=== PATIENT | male | born 1995 | race African-American/Black ===

== ENCOUNTER 2023-02-01 17:08 | Emergency (ER) | payer SELFPAY ==
[~2023-02-01] VITALS: Ht 177.8 cm; Wt 84.0 kg
[2023-02-01 17:14] VITALS: BP 129/82; PULSE 77; RESP 16; TEMP 98.7; O2SAT 99
[2023-02-01] MEDS ORDERED: ARIP30TA3 PO (17:21)
== END 2023-02-01 17:55 | disposition home or self-care (01) ==
LOC: ER 17:10
DX: Z02.89 Encounter for other administrative examinations (principal); F31.9 Bipolar disorder, unspecified; Z76.0 Encounter for issue of repeat prescription
CPT/HCPCS: 99281

== ENCOUNTER 2023-02-19 20:11 | Emergency (ER) | payer MEDICAID ==
[~2023-02-19] VITALS: Ht 180.3 cm; Wt 83.0 kg
[2023-02-19] MEDS ORDERED: LORazepam 1 MG tablet PO ONE (21:15)
[2023-02-19 22:12] LABS: BASOPHILS # (AUTO) 0.1 X10'3 (0-0.2); BASOPHILS % (AUTO) 0.7 % (0-1); EOSINOPHILS % (AUTO) 0.7 % (0-6); HEMATOCRIT 42.9 % (42.0-52.0); HEMOGLOBIN 14.5 g/dl (14.0-17.9); LYMPHOCYTES % (AUTO) 26.2 % (21-51); MEAN CORPUSCULAR HEMOGLOBIN 27.7 PG (27.0-31.0); MEAN CORPUSCULAR HGB CONC 33.7 g/dL (33.0-36.5); MEAN CORPUSCULAR VOLUME 82.2 FL (78-98); MEAN PLATELET VOLUME 8.1 FL (7.4-10.4); MONOCYTES # (AUTO) 0.6 X10'3 (0-0.9); NEUTROPHILS # (AUTO) 4.9 X10'3 (1.8-7.7); NEUTROPHILS % (AUTO) 64.4 % (42-75); PLATELET COUNT 257 X10'3 (140-440); RED BLOOD COUNT 5.22 X10'6 (4.70-6.10); RED CELL DISTRIBUTION WIDTH 14.3 % (11.5-14.5); WHITE BLOOD COUNT 7.5 X10'3 (4.5-11.0)
[2023-02-19 22:27] LABS: ALANINE AMINOTRANSFERASE 47 U/L (12-78); ALBUMIN 4.8 G/DL (3.4-5.0); ALBUMIN/GLOBULIN RATIO 1.3 (1.1-1.5); ALKALINE PHOSPHATASE 88 IU/L (46-116); ANION GAP 10 (8-16); ASPARTATE AMINO TRANSFERASE 39 U/L (10-37); BILIRUBIN,TOTAL 1.3 MG/DL (0.1-1.0); BLOOD UREA NITROGEN 11 MG/DL (7-18); BUN/CREATININE RATIO 11.8 (10.0-20.0); CALCIUM 9.3 MG/DL (8.5-10.1); CHLORIDE 99 MMOL/L (99-107); CREATININE 0.93 MG/DL (0.60-1.10); GLUCOSE 98 MG/DL (70-104); POTASSIUM 3.8 MMOL/L (3.5-5.1); SODIUM 136 MMOL/L (135-145); TOTAL CARBON DIOXIDE 27.2 MMOL/L (24-32); TOTAL PROTEIN 8.4 G/DL (6.4-8.2); eCRCL 127 ML/MIN; eGFR > 90 ML/MIN
[2023-02-19 22:39] LABS: ETHANOL < 10 MG/DL (<10); SALICYLATE 1.5 MG/DL (4.0-20.0); THYROID STIMULATING HORMONE 1.54 ulU/ml (0.34-4.50)
[2023-02-19 22:42] LABS: ACETAMINOPHEN < 2.0 UG/ML (10-30)
[2023-02-20] MEDS ORDERED: LORazepam 2 mg/ml vial ONE ×2 (04:57→05:31)
[2023-02-20] MEDS ORDERED: haloperidol lactate 5mg/ml inj ONE (04:58)
[2023-02-20] MEDS ORDERED: acetaminophen 325mg tablet PO ONE (05:15)
[2023-02-20] MEDS ORDERED: LORazepam 1 MG tablet PO PRN (05:40)
[2023-02-20] MEDS ORDERED: ARIPIPRAZOLE 15 MG TABLET PO SCH (08:00)
[2023-02-20] MEDS ORDERED: nicotine 14mg patch - 24hr TD ONE (08:00)
[2023-02-20 09:09] VITALS: BP 142/87; PULSE 87; RESP 16; TEMP 98.1; O2SAT 100
[2023-02-20 09:41] LABS: URINE AMPHETAMINE SCREEN POSITIVE (Neg); URINE BARBITUATE SCREEN NEGATIVE (Neg); URINE BENZODIAZEPINES SCREEN NEGATIVE (Neg); URINE CANNABINOID SCREEN POSITIVE (Neg); URINE COCAINE SCREEN NEGATIVE (Neg); URINE METHADONE SCREEN NEGATIVE (Neg); URINE OPIATE SCREEN NEGATIVE (Neg); URINE PHENCYCLIDINE SCREEN NEGATIVE (Neg)
[2023-02-20] MEDS ORDERED: ziprasidone IM 20mg inj **IM only IM ONE (11:05)
[2023-02-20] MEDS ORDERED: haloperidol lactate 5mg/ml inj IM ONE ×2 (11:25)
[2023-02-20] MEDS ORDERED: diphenhydrAMINE 50 mg/ml inj IM ONE ×2 (11:25)
[2023-02-20] MEDS ORDERED: LORazepam 2 mg/ml vial IM ONE ×2 (11:25)
== END 2023-02-20 11:58 | disposition left against medical advice (07) ==
LOC: ER 20:13
DX: R45.1 Restlessness and agitation (principal); Z20.822 Contact with and (suspected) exposure to COVID-19; F19.10 Other psychoactive substance abuse, uncomplicated
CPT/HCPCS: 36415; 80053; 80305; 80320; 80329; 84443; 85025; 87811; 96372; 99284; J1200; J1630; J2060

== ENCOUNTER → 2023-02-19 | Emergency (ER) | payer MEDICAID ==
[~2023-02-19] VITALS: Ht 180.3 cm; Wt 83.0 kg
[~2023-02-19] MED LIST: ARIP30TA3 PO
[2023-02-19 12:23] VITALS: BP 133/76; PULSE 100; RESP 18; TEMP 98.4; O2SAT 90
[2023-02-19 13:56] LABS: MEAN PLATELET VOLUME 8.2 FL (7.4-10.4); RED CELL DISTRIBUTION WIDTH 14.4 % (11.5-14.5)
[2023-02-19 13:58] LABS: BASOPHILS # (AUTO) 0.1 X10'3 (0-0.2); BASOPHILS % (AUTO) 0.8 % (0-1); EOSINOPHILS % (AUTO) 0.3 % (0-6); HEMATOCRIT 43.1 % (42.0-52.0); HEMOGLOBIN 14.2 g/dl (14.0-17.9); LYMPHOCYTES # (AUTO) 1.6 X10'3 (1.1-4.8); LYMPHOCYTES % (AUTO) 23.1 % (21-51); MEAN CORPUSCULAR HEMOGLOBIN 27.1 PG (27.0-31.0); MEAN CORPUSCULAR VOLUME 82.1 FL (78-98); MONOCYTES # (AUTO) 0.6 X10'3 (0-0.9); MONOCYTES % (AUTO) 8.1 % (2-12); NEUTROPHILS # (AUTO) 4.8 X10'3 (1.8-7.7); NEUTROPHILS % (AUTO) 67.7 % (42-75); PLATELET COUNT 247 X10'3 (140-440); RED BLOOD COUNT 5.25 X10'6 (4.70-6.10); WHITE BLOOD COUNT 7.1 X10'3 (4.5-11.0)
[2023-02-19 14:13] LABS: ALANINE AMINOTRANSFERASE 43 U/L (12-78); ALBUMIN 4.9 G/DL (3.4-5.0); ALBUMIN/GLOBULIN RATIO 1.1 (1.1-1.5); ALKALINE PHOSPHATASE 84 IU/L (46-116); ANION GAP 10 (8-16); ASPARTATE AMINO TRANSFERASE 40 U/L (10-37); BILIRUBIN,TOTAL 1.2 MG/DL (0.1-1.0); BLOOD UREA NITROGEN 14 MG/DL (7-18); BUN/CREATININE RATIO 15.6 (10.0-20.0); CALCIUM 9.7 MG/DL (8.5-10.1); CHLORIDE 101 MMOL/L (99-107); ETHANOL < 10 MG/DL (<10); GLUCOSE 89 MG/DL (70-104); POTASSIUM 3.8 MMOL/L (3.5-5.1); SODIUM 139 MMOL/L (135-145); TOTAL CARBON DIOXIDE 28.5 MMOL/L (24-32); TOTAL PROTEIN 9.3 G/DL (6.4-8.2); eCRCL 131 ML/MIN; eGFR > 90 ML/MIN
== END | disposition left against medical advice (07) ==
LOC: ER 12:13
DX: F41.9 Anxiety disorder, unspecified (principal); Z20.822 Contact with and (suspected) exposure to COVID-19; F30.9 Manic episode, unspecified; F29 Unspecified psychosis not due to a substance or known physiological condition; Z79.899 Other long term (current) drug therapy; Z59.00 Homelessness unspecified
CPT/HCPCS: 36415; 80053; 80320; 85025; 87811; 99284; 99285

== ENCOUNTER 2023-07-20 22:54 | Emergency (ER) | payer MEDICAID ==
[~2023-07-20] VITALS: Ht 177.8 cm; Wt 83.0 kg
[~2023-07-20 22:54] MED LIST changes: -ARIP30TA3 PO; +FERR142T13 PO; +HYDR-3686 PO; +NICO-631 TD; +NICO-907 BC; +OLAN10TA73 PO
[2023-07-20 23:41] LABS: BASOPHILS # (AUTO) 0.1 X10'3 (0-0.2); BASOPHILS % (AUTO) 0.7 % (0-1); EOSINOPHILS # (AUTO) 0.1 X10'3 (0-0.9); EOSINOPHILS % (AUTO) 0.8 % (0-6); HEMATOCRIT 41.6 % (42.0-52.0); HEMOGLOBIN 13.9 g/dl (14.0-17.9); LYMPHOCYTES # (AUTO) 2.4 X10'3 (1.1-4.8); LYMPHOCYTES % (AUTO) 27.8 % (21-51); MEAN CORPUSCULAR HEMOGLOBIN 26.5 PG (27.0-31.0); MEAN CORPUSCULAR HGB CONC 33.5 g/dL (33.0-36.5); MEAN CORPUSCULAR VOLUME 79.1 FL (78-98); MEAN PLATELET VOLUME 7.4 FL (7.4-10.4); MONOCYTES # (AUTO) 0.8 X10'3 (0-0.9); MONOCYTES % (AUTO) 9.9 % (2-12); NEUTROPHILS # (AUTO) 5.2 X10'3 (1.8-7.7); NEUTROPHILS % (AUTO) 60.8 % (42-75); PLATELET COUNT 272 X10'3 (140-440); RED BLOOD COUNT 5.26 X10'6 (4.70-6.10); RED CELL DISTRIBUTION WIDTH 14.8 % (11.5-14.5); WHITE BLOOD COUNT 8.5 X10'3 (4.5-11.0)
[2023-07-21 00:01] LABS: ALBUMIN 4.6 G/DL (3.4-5.0); ANION GAP 12 (8-16); BLOOD UREA NITROGEN 12 MG/DL (7-18); BUN/CREATININE RATIO 12.9 (10.0-20.0); CHLORIDE 100 MMOL/L (99-107); CREATININE 0.93 MG/DL (0.60-1.10); ETHANOL < 10 MG/DL (<10); GLUCOSE 89 MG/DL (70-104); POTASSIUM 3.3 MMOL/L (3.5-5.1); SALICYLATE 0.8 MG/DL (4.0-20.0); SODIUM 136 MMOL/L (135-145); TOTAL CARBON DIOXIDE 23.7 MMOL/L (24-32); eCRCL 123 ML/MIN; eGFR > 90 ML/MIN
[2023-07-21 00:06] LABS: ACETAMINOPHEN < 2.0 UG/ML (10-30)
[2023-07-21] MEDS: LORazepam 1 MG tablet PO ONE (00:51)
[2023-07-21 01:32] LABS: BILIRUBIN,URINE NEGATIVE (Neg); CLARITY,URINE CLEAR (Clear); COLOR,URINE YELLOW (Yellow); GLUCOSE, URINE NEGATIVE (Neg); KETONES,URINE 15 mg/dl (Neg); LEUKOCYTE ESTERASE ,URINE NEGATIVE (Neg); NITRITES, URINE NEGATIVE (Neg); OCCULT BLOOD,URINE NEGATIVE (Neg); PH,URINE 5.5 (4.8-8.0); PROTEIN,URINE NEGATIVE (Neg)
[2023-07-21 01:40] LABS: URINE AMPHETAMINE SCREEN POSITIVE (Neg); URINE BARBITUATE SCREEN NEGATIVE (Neg); URINE BENZODIAZEPINES SCREEN NEGATIVE (Neg); URINE CANNABINOID SCREEN POSITIVE (Neg); URINE COCAINE SCREEN NEGATIVE (Neg); URINE METHADONE SCREEN NEGATIVE (Neg); URINE PHENCYCLIDINE SCREEN NEGATIVE (Neg)
[2023-07-21 01:50] LABS: UA COLLECTION TYPE CLN CATCH MIDSTREAM
[2023-07-21] MEDS ORDERED: HYDR-3686 PO (10:05)
[2023-07-21] MEDS ORDERED: OLAN5TAB5 PO (10:05)
[2023-07-21] MEDS ORDERED: OLANZapine 2.5MG tablet PO ONE ×2 (13:20→13:25)
[2023-07-21] MEDS ORDERED: hydrOXYzine 25 MG tablet PO ONE (13:20)
[2023-07-21] MEDS: olanzapine 10mg tablet PO ONE (13:32)
[2023-07-21] MEDS: hydrOXYzine 25 MG tablet PO ONE (13:32)
[2023-07-21 15:02] VITALS: BP 122/70; PULSE 74; RESP 16; TEMP 98.2; O2SAT 100
[2023-07-21] MEDS ORDERED: hydrOXYzine 25 MG tablet PO SCH ×2 (21:00)
[2023-07-21] MEDS ORDERED: OLANZapine 5mg rapidly disint. tablet PO SCH ×2 (21:00)
== END 2023-07-21 15:22 | disposition home or self-care (01) ==
LOC: ER 22:55
DX: R45.850 Homicidal ideations (principal); Z20.822 Contact with and (suspected) exposure to COVID-19; F23 Brief psychotic disorder; Z79.899 Other long term (current) drug therapy; F12.90 Cannabis use, unspecified, uncomplicated
CPT/HCPCS: 36415; 80048; 80305; 80320; 80329; 81003; 85025; 87811; 99285; Q0177

== ENCOUNTER 2023-07-27 19:18 | Emergency (ER) | payer MEDICAID ==
[~2023-07-27] VITALS: Ht 180.3 cm; Wt 80.0 kg
[~2023-07-27 19:18] MED LIST changes: -FERR142T13 PO; -NICO-631 TD; -NICO-907 BC; -OLAN10TA73 PO; +OLAN5TAB5 PO
[2023-07-27 20:54] LABS: BASOPHILS % (AUTO) 0.9 % (0-1); EOSINOPHILS # (AUTO) 0.2 X10'3 (0-0.9); HEMATOCRIT 39.7 % (42.0-52.0); HEMOGLOBIN 13.1 g/dl (14.0-17.9); LYMPHOCYTES # (AUTO) 1.7 X10'3 (1.1-4.8); LYMPHOCYTES % (AUTO) 32.5 % (21-51); MEAN CORPUSCULAR HEMOGLOBIN 26.5 PG (27.0-31.0); MEAN CORPUSCULAR VOLUME 80.1 FL (78-98); MEAN PLATELET VOLUME 7.2 FL (7.4-10.4); MONOCYTES # (AUTO) 0.5 X10'3 (0-0.9); MONOCYTES % (AUTO) 9.6 % (2-12); NEUTROPHILS # (AUTO) 2.9 X10'3 (1.8-7.7); PLATELET COUNT 267 X10'3 (140-440); RED BLOOD COUNT 4.95 X10'6 (4.70-6.10); RED CELL DISTRIBUTION WIDTH 15.1 % (11.5-14.5); WHITE BLOOD COUNT 5.3 X10'3 (4.5-11.0)
[2023-07-27 21:09] LABS: ANION GAP 7 (8-16); BLOOD UREA NITROGEN 7 MG/DL (7-18); BUN/CREATININE RATIO 8.3 (10.0-20.0); CHLORIDE 101 MMOL/L (99-107); CREATININE 0.84 MG/DL (0.60-1.10); GLUCOSE 102 MG/DL (70-104); POTASSIUM 3.3 MMOL/L (3.5-5.1); SALICYLATE 1.7 MG/DL (4.0-20.0); SODIUM 136 MMOL/L (135-145); TOTAL CARBON DIOXIDE 27.6 MMOL/L (24-32); eCRCL 141 ML/MIN; eGFR > 90 ML/MIN
[2023-07-27 21:10] LABS: ACETAMINOPHEN < 2.0 UG/ML (10-30)
[2023-07-27 21:11] LABS: ETHANOL < 10 MG/DL (<10)
[2023-07-27] MEDS ORDERED: POTASSIUM BICARB 20meq eff tab 20 MEQ TABLET.EFF PO SCH (21:35)
[2023-07-27] MEDS: POTASSIUM BICARB 20meq eff tab 20 MEQ TABLET.EFF PO SCH (21:35)
[2023-07-27] MEDS ORDERED: POTASSIUM BICARB 20meq eff tab 20 MEQ TABLET.EFF PO STA (21:38)
[2023-07-27] MEDS: potassium Cl 20 mEq SR tablet PO STA (22:09)
[2023-07-27 23:44] LABS: BILIRUBIN,URINE NEGATIVE (Neg); CLARITY,URINE CLEAR (Clear); COLOR,URINE YELLOW (Yellow); GLUCOSE, URINE NEGATIVE (Neg); KETONES,URINE NEGATIVE (Neg); LEUKOCYTE ESTERASE ,URINE NEGATIVE (Neg); NITRITES, URINE NEGATIVE (Neg); OCCULT BLOOD,URINE NEGATIVE (Neg); PROTEIN,URINE NEGATIVE (Neg)
[2023-07-27 23:50] LABS: UA COLLECTION TYPE CLN CATCH MIDSTREAM
[2023-07-28 00:01] LABS: URINE AMPHETAMINE SCREEN NEGATIVE (Neg); URINE BARBITUATE SCREEN NEGATIVE (Neg); URINE BENZODIAZEPINES SCREEN NEGATIVE (Neg); URINE CANNABINOID SCREEN POSITIVE (Neg); URINE COCAINE SCREEN NEGATIVE (Neg); URINE METHADONE SCREEN NEGATIVE (Neg); URINE PHENCYCLIDINE SCREEN NEGATIVE (Neg)
[2023-07-28 06:31] VITALS: BP 112/74; PULSE 60; RESP 16; TEMP 96.7; O2SAT 100
== END 2023-07-28 13:26 | disposition home or self-care (01) ==
LOC: ER 19:19
DX: R45.851 Suicidal ideations (principal); Z20.822 Contact with and (suspected) exposure to COVID-19; F12.90 Cannabis use, unspecified, uncomplicated; Z79.899 Other long term (current) drug therapy
CPT/HCPCS: 36415; 80048; 80305; 80320; 80329; 81003; 85025; 87811; 99285

== ENCOUNTER 2024-01-18 16:57 | Inpatient (IN) | payer MEDICAID ==
[~2024-01-18] VITALS: Ht 180.3 cm; Wt 85.2 kg
[2024-01-18 18:07] LABS: BASOPHILS % (AUTO) 0.6 % (0-1); EOSINOPHILS % (AUTO) 0.5 % (0-6); HEMATOCRIT 43.3 % (42.0-52.0); HEMOGLOBIN 14.8 g/dl (14.0-17.9); LYMPHOCYTES # (AUTO) 1.6 X10'3 (1.1-4.8); LYMPHOCYTES % (AUTO) 21.6 % (21-51); MEAN CORPUSCULAR HEMOGLOBIN 27.6 PG (27.0-31.0); MEAN PLATELET VOLUME 7.7 FL (7.4-10.4); MONOCYTES # (AUTO) 0.6 X10'3 (0-0.9); MONOCYTES % (AUTO) 7.4 % (2-12); NEUTROPHILS # (AUTO) 5.2 X10'3 (1.8-7.7); NEUTROPHILS % (AUTO) 69.9 % (42-75); PLATELET COUNT 288 X10'3 (140-440); RED BLOOD COUNT 5.35 X10'6 (4.70-6.10); WHITE BLOOD COUNT 7.4 X10'3 (4.5-11.0)
[2024-01-18] MEDS: LORazepam 1 MG tablet PO ONE (18:11)
[2024-01-18] MEDS: hydrOXYzine 25 MG tablet PO ONE (18:12)
[2024-01-18 18:30] LABS: ALBUMIN 4.6 G/DL (3.4-5.0); ANION GAP 11 (8-16); BLOOD UREA NITROGEN 12 MG/DL (7-18); BUN/CREATININE RATIO 13.5 (10.0-20.0); CALCIUM 9.4 MG/DL (8.5-10.1); CHLORIDE 101 MMOL/L (99-107); CREATININE 0.89 MG/DL (0.60-1.10); ETHANOL < 10 MG/DL (<10); GLUCOSE 105 MG/DL (70-104); POTASSIUM 3.6 MMOL/L (3.5-5.1); SODIUM 137 MMOL/L (135-145); THYROID STIMULATING HORMONE 0.58 ulU/ml (0.34-4.50); eCRCL 124 ML/MIN; eGFR > 90 ML/MIN
[2024-01-19 05:24] LABS: BILIRUBIN,URINE NEGATIVE (Neg); CLARITY,URINE CLEAR (Clear); COLOR,URINE YELLOW (Yellow); GLUCOSE, URINE NEGATIVE (Neg); KETONES,URINE 15 mg/dl (Neg); LEUKOCYTE ESTERASE ,URINE NEGATIVE (Neg); NITRITES, URINE NEGATIVE (Neg); OCCULT BLOOD,URINE NEGATIVE (Neg); PROTEIN,URINE NEGATIVE (Neg)
[2024-01-19 05:28] LABS: UA COLLECTION TYPE CLN CATCH MIDSTREAM
[2024-01-19 05:45] LABS: URINE AMPHETAMINE SCREEN NEGATIVE (Neg); URINE BARBITUATE SCREEN NEGATIVE (Neg); URINE BENZODIAZEPINES SCREEN NEGATIVE (Neg); URINE CANNABINOID SCREEN POSITIVE (Neg); URINE COCAINE SCREEN NEGATIVE (Neg); URINE METHADONE SCREEN NEGATIVE (Neg); URINE OPIATE SCREEN NEGATIVE (Neg); URINE PHENCYCLIDINE SCREEN NEGATIVE (Neg)
[2024-01-19 16:56] VITALS: BP 136/59; PULSE 83; RESP 12; TEMP 98.8; O2SAT 99
[2024-01-19 17:32] VITALS: RESP 12; O2SAT 99
[2024-01-19] MEDS ORDERED: LURA20TA2 PO (17:32)
[2024-01-19] MEDS ORDERED: HYDR50TA65 PO (17:32)
[2024-01-19 19:00] VITALS: RESP 18; O2SAT 99
[2024-01-19 20:00] VITALS: BP 128/80; PULSE 83; RESP 20; TEMP 97.1; O2SAT 99
[2024-01-19] MEDS: hydrOXYzine 25 MG tablet PO SCH (20:50)
[2024-01-19] MEDS: OLANZapine 5mg rapidly disint. tablet PO SCH (20:54)
[2024-01-20 07:00] VITALS: RESP 16; O2SAT 99
[2024-01-20 08:00] VITALS: BP 136/80; PULSE 79; RESP 16; TEMP 98; O2SAT 99
[2024-01-20] MEDS: hydrOXYzine 25 MG tablet PO PRN (08:28)
[2024-01-20] MEDS: OLANZapine 5mg rapidly disint. tablet PO ONE (08:57)
[2024-01-20] MEDS: LORazepam 1 MG tablet PO ONE (08:57)
[2024-01-20 19:00] VITALS: RESP 18; O2SAT 100
[2024-01-20 19:31] VITALS: BP 156/64; PULSE 76; RESP 18; TEMP 97.8; O2SAT 100
[2024-01-20] MEDS: lurasidone 20mg tablet PO SCH (20:26)
[2024-01-20] MEDS: ondansetron 4mg rapidly disintigrating tab PO ONE (22:10)
[2024-01-20] MEDS: ziprasidone IM 20mg inj **IM only IM ONE (22:18)
[2024-01-20] MEDS ORDERED: diphenhydrAMINE 25mg capsule PO ONE (22:30)
[2024-01-20] MEDS ORDERED: LORazepam 1 MG tablet PO ONE (22:30)
[2024-01-20] MEDS ORDERED: haloperidol 5mg tablet PO ONE (22:30)
[2024-01-21 06:32] VITALS: RESP 18; O2SAT 100
[2024-01-21 08:00] VITALS: BP 112/85; PULSE 105; RESP 16; TEMP 97.8; O2SAT 98
[2024-01-21] MEDS ORDERED: loperamide 2mg capsule PO PRN (09:30)
[2024-01-21] MEDS ORDERED: acetaminophen 325mg tablet PO PRN ×2 (09:30)
[2024-01-21] MEDS: magnesium hydroxide 30ml (MOM) UD suspension PO PRN (09:44)
[2024-01-21] MEDS: haloperidol 5mg tablet PO ONE (14:35)
[2024-01-21] MEDS: diphenhydrAMINE 25mg capsule PO ONE (14:35)
[2024-01-21] MEDS: ziprasidone 20mg capsule PO ONE (14:35)
[2024-01-21 18:48] VITALS: RESP 18; O2SAT 100
[2024-01-21 19:00] VITALS: BP 144/78; PULSE 88; RESP 18; TEMP 98.7; O2SAT 100
[2024-01-22 07:00] VITALS: RESP 16; O2SAT 100
[2024-01-22] MEDS: diphenhydrAMINE 25mg capsule PO ONE (07:28)
[2024-01-22] MEDS: haloperidol 5mg tablet PO ONE (07:28)
[2024-01-22 08:00] VITALS: BP 141/105; PULSE 87; RESP 16; TEMP 98.1; O2SAT 100
[2024-01-22] MEDS: OLANZapine 5mg rapidly disint. tablet PO ONE (11:31)
[2024-01-22] MEDS: OLANZapine **IM** 10 mg inj. IM ONE (17:37)
[2024-01-22 19:00] VITALS: BP 153/78; PULSE 95; RESP 16; RESP 18; TEMP 98.4; O2SAT 94; O2SAT 98
[2024-01-22] MEDS: lurasidone 20mg tablet PO SCH (20:07)
[2024-01-22] MEDS: LORazepam 1 MG tablet PO ONE (20:08)
[2024-01-22] MEDS: OLANZAPINE 5 MG TABLET PO SCH (20:10)
[2024-01-23 07:00] VITALS: RESP 20; O2SAT 99
[2024-01-23] MEDS: OLANZapine 5mg rapidly disint. tablet PO SCH (07:13)
[2024-01-23 08:48] VITALS: BP 129/72; PULSE 87; RESP 20; TEMP 98; O2SAT 99
[2024-01-23] MEDS: LORazepam 1 MG tablet PO ONE (12:38)
[2024-01-23 18:54] VITALS: RESP 16; O2SAT 100
[2024-01-23 19:04] VITALS: BP 137/80; PULSE 85; RESP 16; TEMP 97.8; O2SAT 100
[2024-01-23] MEDS: LORazepam 1 MG tablet PO PRN (20:03)
[2024-01-24] MEDS: mag hydrox/Alum hydrox/simeth 30ml oral suspension PO PRN (03:31)
[2024-01-24 07:00] VITALS: RESP 16; O2SAT 96
[2024-01-24] MEDS: divalproex sod 250mg ER (24-hour) tablet PO SCH (07:51)
[2024-01-24 08:00] VITALS: BP 148/94; PULSE 84; RESP 16; TEMP 97.9; O2SAT 96
[2024-01-24] MEDS ORDERED: busPIRone 5mg tablet PO PRN (11:30)
[2024-01-24] MEDS: LORazepam 1 MG tablet PO ONE (11:59)
[2024-01-24 19:00] VITALS: RESP 18; O2SAT 100
[2024-01-24 20:00] VITALS: BP 139/76; PULSE 80; RESP 18; TEMP 98; O2SAT 100
[2024-01-24] MEDS: busPIRone 5mg tablet PO SCH (20:38)
[2024-01-25] MEDS: hydrOXYzine 25 MG tablet PO ONE (05:15)
[2024-01-25 07:00] VITALS: RESP 16; O2SAT 98
[2024-01-25 08:00] VITALS: BP 131/88; PULSE 96; RESP 16; TEMP 98.6; O2SAT 98
[2024-01-25] MEDS: divalproex sod 250mg ER (24-hour) tablet PO STA (10:31)
[2024-01-25] MEDS: LORazepam 1 MG tablet PO ONE (10:31)
[2024-01-25] MEDS: haloperidol lactate 5mg/ml inj ONE (13:23)
[2024-01-25] MEDS: diphenhydrAMINE 50 mg/ml inj ONE (13:24)
[2024-01-25] MEDS: LORazepam 2 mg/ml vial ONE (13:24)
[2024-01-25] MEDS: diphenhydrAMINE 50 mg/ml inj IM ONE (13:25)
[2024-01-25] MEDS: LORazepam 2 mg/ml vial IM ONE (13:25)
[2024-01-25] MEDS: haloperidol lactate 5mg/ml inj IM ONE (13:25)
[2024-01-25 19:00] VITALS: RESP 18; O2SAT 100
[2024-01-25 20:00] VITALS: BP 134/77; PULSE 87; RESP 18; TEMP 98.9; O2SAT 100
[2024-01-26 07:00] VITALS: RESP 12; O2SAT 98
[2024-01-26 08:00] VITALS: BP 145/84; PULSE 88; RESP 12; TEMP 97.9; O2SAT 98
[2024-01-26] MEDS: diphenhydrAMINE 50 mg/ml inj IM ONE (12:06)
[2024-01-26] MEDS: LORazepam 2 mg/ml vial IM ONE (12:06)
[2024-01-26] MEDS: haloperidol lactate 5mg/ml inj IM ONE (12:06)
[2024-01-26] MEDS: divalproex sod 250mg ER (24-hour) tablet PO SCH (13:14)
[2024-01-26 19:00] VITALS: RESP 18; O2SAT 99
[2024-01-26 20:00] VITALS: BP 130/85; PULSE 98; RESP 18; TEMP 98.9; O2SAT 99
[2024-01-26] MEDS: OLANZAPINE 5 MG TABLET PO SCH (20:28)
[2024-01-27 07:00] VITALS: RESP 16; O2SAT 98
[2024-01-27 08:00] VITALS: BP 139/86; PULSE 98; RESP 16; TEMP 98.2; O2SAT 100
[2024-01-27 19:00] VITALS: RESP 16; O2SAT 99
[2024-01-27 20:00] VITALS: BP 114/59; PULSE 67; RESP 16; TEMP 98.4; O2SAT 98
[2024-01-28 07:30] VITALS: BP 135/72; PULSE 75; RESP 20; TEMP 98.6; O2SAT 100
[2024-01-28 19:00] VITALS: BP 127/86; PULSE 88; RESP 16; TEMP 98.2; O2SAT 99
[2024-01-29 07:30] VITALS: BP 137/69; PULSE 81; RESP 16; TEMP 98.9; O2SAT 99
[2024-01-29 19:10] VITALS: RESP 16; O2SAT 100
[2024-01-29 19:14] VITALS: BP 116/80; PULSE 77; RESP 16; TEMP 97.6; O2SAT 100
[2024-01-30 07:00] VITALS: BP 121/67; PULSE 70; RESP 16; TEMP 98.3; O2SAT 100
[2024-01-30] MEDS ORDERED: OLAN5TAB5 PO (09:42)
[2024-01-30] MEDS ORDERED: BUSP5TAB26 PO (09:42)
[2024-01-30] MEDS ORDERED: DIVA250T8 PO (09:42)
[2024-01-30] MEDS ORDERED: LURA20TA2 PO (09:42)
[2024-01-30 19:38] VITALS: BP 131/71; PULSE 75; RESP 18; TEMP 98.8; O2SAT 99
[2024-01-31 07:00] VITALS: BP 124/78; PULSE 68; RESP 12; RESP 16; TEMP 97.9; O2SAT 100
[2024-01-31 20:00] VITALS: RESP 16
[2024-02-01 08:00] VITALS: BP 126/81; PULSE 70; RESP 16; TEMP 97.8; O2SAT 100
[2024-02-01 08:30] VITALS: RESP 16
[2024-02-01 19:00] VITALS: RESP 20
[2024-02-01 20:00] VITALS: BP 114/84; PULSE 78; RESP 20; TEMP 97.8; O2SAT 100
[2024-02-02 07:00] VITALS: RESP 12
[2024-02-02 08:00] VITALS: BP 127/73; PULSE 68; RESP 12; TEMP 98.8; O2SAT 100
== END 2024-02-02 12:11 | DRG 754 ==
LOC: ER 16:58 → UNDOADMIN 01-19 11:31 → ADULT MH 01-19 11:31
PROVIDERS: ADMIT Psychiatry & Neurology Psychiatry; ATTEND Psychiatry & Neurology Psychiatry
PROC: GZHZZZZ Group Psychotherapy (ICD-10-PCS; principal; 2024-01-20)
PROC: GZ51ZZZ Individual Psychotherapy, Behavioral (ICD-10-PCS; 2024-01-20)
DX: F32.A Depression, unspecified (principal); R45.851 Suicidal ideations; F29 Unspecified psychosis not due to a substance or known physiological condition; Z20.822 Contact with and (suspected) exposure to COVID-19; F41.9 Anxiety disorder, unspecified; Z59.00 Homelessness unspecified; R45.850 Homicidal ideations
CPT/HCPCS: 36415; 71045; 80048; 80305; 80320; 81003; 84443; 85025; 87081; 87811; 99285; J1200; J1630; J2060; J3486; J3490; Q0163; Q0177

== ENCOUNTER 2024-03-07 21:55 | Emergency (ER) | payer MEDICAID ==
[~2024-03-07] VITALS: Ht 180.3 cm; Wt 90.4 kg
[~2024-03-07 21:55] MED LIST changes: +BUSP5TAB26 PO; +DIVA250T8 PO; -HYDR-3686 PO; +LURA20TA2 PO
[2024-03-07 22:54] LABS: BILIRUBIN,URINE NEGATIVE (Neg); CLARITY,URINE CLEAR (Clear); COLOR,URINE YELLOW (Yellow); GLUCOSE, URINE NEGATIVE (Neg); KETONES,URINE NEGATIVE (Neg); LEUKOCYTE ESTERASE ,URINE NEGATIVE (Neg); NITRITES, URINE NEGATIVE (Neg); OCCULT BLOOD,URINE NEGATIVE (Neg); PROTEIN,URINE NEGATIVE (Neg); UROBILINOGEN,URINE 0.2 E.U/dL (0.2-1.0)
[2024-03-07 22:56] LABS: BASOPHILS % (AUTO) 0.6 % (0-1); EOSINOPHILS # (AUTO) 0.1 X10'3 (0-0.9); EOSINOPHILS % (AUTO) 0.9 % (0-6); HEMATOCRIT 39.3 % (42.0-52.0); HEMOGLOBIN 13.3 g/dl (14.0-17.9); LYMPHOCYTES # (AUTO) 1.7 X10'3 (1.1-4.8); LYMPHOCYTES % (AUTO) 19.1 % (21-51); MEAN CORPUSCULAR HEMOGLOBIN 27.4 PG (27.0-31.0); MEAN CORPUSCULAR HGB CONC 33.8 g/dL (33.0-36.5); MEAN PLATELET VOLUME 8.1 FL (7.4-10.4); MONOCYTES # (AUTO) 0.7 X10'3 (0-0.9); MONOCYTES % (AUTO) 7.8 % (2-12); NEUTROPHILS # (AUTO) 6.4 X10'3 (1.8-7.7); NEUTROPHILS % (AUTO) 71.6 % (42-75); PLATELET COUNT 259 X10'3 (140-440); RED BLOOD COUNT 4.85 X10'6 (4.70-6.10); RED CELL DISTRIBUTION WIDTH 14.6 % (11.5-14.5)
[2024-03-07 22:56] LABS: UA COLLECTION TYPE VOIDED
[2024-03-07 23:09] LABS: ALBUMIN 4.3 G/DL (3.4-5.0); ANION GAP 8 (8-16); BLOOD UREA NITROGEN 8 MG/DL (7-18); BUN/CREATININE RATIO 9.1 (10.0-20.0); CALCIUM 9.2 MG/DL (8.5-10.1); CHLORIDE 101 MMOL/L (99-107); CREATININE 0.88 MG/DL (0.60-1.10); ETHANOL < 10 MG/DL (<10); GLUCOSE 104 MG/DL (70-104); POTASSIUM 3.4 MMOL/L (3.5-5.1); SODIUM 139 MMOL/L (135-145); THYROID STIMULATING HORMONE 1.24 ulU/ml (0.34-4.50); TOTAL CARBON DIOXIDE 30.4 MMOL/L (24-32); eCRCL 133 ML/MIN; eGFR > 90 ML/MIN
[2024-03-07 23:33] LABS: URINE AMPHETAMINE SCREEN NEGATIVE (Neg); URINE BARBITUATE SCREEN NEGATIVE (Neg); URINE BENZODIAZEPINES SCREEN NEGATIVE (Neg); URINE CANNABINOID SCREEN POSITIVE (Neg); URINE COCAINE SCREEN NEGATIVE (Neg); URINE METHADONE SCREEN NEGATIVE (Neg); URINE OPIATE SCREEN NEGATIVE (Neg); URINE PHENCYCLIDINE SCREEN NEGATIVE (Neg)
[2024-03-07] MEDS: LORazepam 1 MG tablet PO ONE (23:43)
[2024-03-07] MEDS: diphenhydrAMINE 25mg capsule PO ONE (23:43)
[2024-03-07] MEDS: haloperidol lactate 5mg/ml inj IM ONE (23:56)
[2024-03-08] MEDS ORDERED: LURA60TA PO (00:16)
[2024-03-08] MEDS ORDERED: BUSP10TA11 PO (00:16)
[2024-03-08] MEDS ORDERED: DIVA500T4 PO (00:16)
[2024-03-08] MEDS ORDERED: OLAN5TAB5 PO (00:16)
[2024-03-08 05:59] VITALS: BP 128/77; PULSE 92; TEMP 98.8; O2SAT 99
[2024-03-08] MEDS: divalproex sod 250mg ER (24-hour) tablet PO SCH (09:48)
[2024-03-08] MEDS: busPIRone 5mg tablet PO SCH (09:48)
[2024-03-08 09:57] VITALS: RESP 16
[2024-03-08] MEDS ORDERED: lurasidone 60mg tablet PO SCH (21:00)
[2024-03-08] MEDS ORDERED: OLANZapine 5mg rapidly disint. tablet PO SCH (21:00)
== END 2024-03-08 12:20 | disposition still patient (30) ==
LOC: ER 21:56
DX: F29 Unspecified psychosis not due to a substance or known physiological condition (principal); F31.9 Bipolar disorder, unspecified; F12.90 Cannabis use, unspecified, uncomplicated; Z20.822 Contact with and (suspected) exposure to COVID-19; Z79.899 Other long term (current) drug therapy
CPT/HCPCS: 36415; 80048; 80305; 80320; 81003; 84443; 85025; 87811; 96372; 99291; J1630; Q0163